=== PATIENT | female | born 1960 | race Caucasian/White ===

== ENCOUNTER 2021-08-15 17:28 | Emergency (ER) | payer OTHER ==
[~2021-08-15] VITALS: Ht 154.9 cm; Wt 59.0 kg
[~2021-08-15 17:28] MED LIST: AMLO10 PO; ASPI81CH PO; ATOR80 PO; B-12500 MC2 PO; BUSP10 PO; CARV6.25 PO; CEPH500 PO; CLON.5 PO; DERMACINRX FOL1 EAC2 PO; HYDCHL25 PO; HYDR100 PO; Isosorbide Mono30 MG PO; KLOR-CON 1010 ME6 PO; LISI20 PO; MELA3 PO; METF500C PO; OLAN5 PO; PARO20 PO; POTA10T PO; TRAM50 PO
[2021-08-15 18:26] LABS: Source, Urine Straight Cath
[2021-08-15 18:31] LABS: Appearance, Urine Clear (Clear); Bilirubin, Urine Neg (Neg); Blood, Urine Neg (Neg); Color, Urine Yellow (P-Yellow); Glucose Qualitative, Urine Neg (Neg); Ketones, Urine Neg (Neg); Leukocyte Esterase, Urine Neg (Neg); Nitrite, Urine Neg (Neg); Protein, Urine Neg (Neg); Specific Gravity, Urine 1.015 (1.003-1.022); Urobilinogen, Urine NORM (Normal)
== END 2021-08-15 20:41 | disposition home or self-care (01) ==
LOC: ER 17:28
PROVIDERS: Emergency Medicine
DX: R41.82 Altered mental status, unspecified (principal); Z79.899 Other long term (current) drug therapy; Z79.891 Long term (current) use of opiate analgesic; Z79.82 Long term (current) use of aspirin; Z79.84 Long term (current) use of oral hypoglycemic drugs
CPT/HCPCS: 51701; 81003; 99284

== ENCOUNTER 2021-09-20 18:58 | Emergency (ER) | payer OTHER ==
[~2021-09-20] VITALS: Ht 154.9 cm; Wt 56.7 kg
[~2021-09-20 18:58] MED LIST changes: +ACET325 PO; +ALPR.25 PO; +BISA10S PR; +NEURONTIN300 MG PO; +VITAMIN D5000 UNIT PO
[2021-09-20 19:30] LABS: BASOPHILS ABSOLUTE AUTO 0.09 K/mm3 (0.00-0.23); BASOPHILS PERCENT AUTO 1 % (0-2); EOSINOPHILS ABSOLUTE AUTO 0.25 K/mm3 (0.00-0.68); EOSINOPHILS PERCENT AUTO 3 % (0-6); Hematocrit 34.9 % (33.0-51.0); Hemoglobin 11.1 g/dL (11.5-16.0); IMMATURE GRAN ABSOLUTE AUTO 0.03 K/mm3 (0.00-0.10); IMMATURE GRAN PERCENT AUTO 0 % (0-1); LYMPHOCYTES ABSOLUTE AUTO 3.73 K/mm3 (0.84-5.20); LYMPHOCYTES PERCENT AUTO 38 % (21-46); MONOCYTES ABSOLUTE AUTO 0.55 K/mm3 (0.16-1.47); MONOCYTES PERCENT AUTO 6 % (4-13); Mean Corpuscular HGB 30.4 pg (26.0-34.0); Mean Corpuscular HGB Conc 31.8 g/dL (31.5-36.5); Mean Corpuscular Volume 96 fL (80-100); NEUTROPHILS ABSOLUTE AUTO 5.18 K/mm3 (1.96-9.15); NEUTROPHILS PERCENT AUTO 53 % (41-73); Platelet Count 424 K/mm3 (150-400); RDW Coefficient Variation 13.3 % (11.7-14.2); RDW Standard Deviation 47.4 fL (35.1-46.3); Red Blood Cell Count 3.65 M/mm3 (3.80-5.20); White Blood Cell Count 9.83 K/mm3 (4.00-11.30)
[2021-09-20 20:01] LABS: Albumin, Blood 3.5 g/dL (3.4-5.0); Albumin/Globulin Ratio 0.9 (0.8-1.8); Bilirubin, Total 0.3 mg/dL (0.1-1.0); Bun/Creatinine Ratio 19.8 (12.0-20.0); Calcium, Blood 9.1 mg/dL (8.5-10.1); Creatinine, Blood 1.26 mg/dL (0.40-1.00); Potassium, Blood 3.6 mmol/L (3.5-5.5); Total Protein, Blood 7.5 g/dL (6.4-8.2)
[2021-09-20] MEDS ORDERED: CLOP75 PO (22:09)
== END 2021-09-20 23:02 | disposition home or self-care (01) ==
LOC: ER 18:58
PROVIDERS: Emergency Medicine
DX: T18.128A Food in esophagus causing other injury, initial encounter (principal); X58.XXXA Exposure to other specified factors, initial encounter; I65.23 Occlusion and stenosis of bilateral carotid arteries; I10 Essential (primary) hypertension; E78.5 Hyperlipidemia, unspecified; Z79.82 Long term (current) use of aspirin; Z79.899 Other long term (current) drug therapy
CPT/HCPCS: 36415; 70450; 70496; 70498; 71045; 80053; 82947; 84484; 85025; 93005; 93010; A9270; Q9967

== ENCOUNTER 2023-03-09 10:26 | Inpatient (IN) | payer OTHER ==
[~2023-03-09] VITALS: Ht 154.9 cm; Wt 59.4 kg
[~2023-03-09 10:26] MED LIST changes: +CLOP75 PO; -HYDR100 PO; +HYDRA50 PO
[2023-03-09 10:47] LABS: BASOPHILS ABSOLUTE AUTO 0.03 K/mm3 (0.00-0.23); BASOPHILS PERCENT AUTO 0 % (0-2); EOSINOPHILS ABSOLUTE AUTO 0.08 K/mm3 (0.00-0.68); EOSINOPHILS PERCENT AUTO 1 % (0-6); Hematocrit 36.6 % (33.0-51.0); Hemoglobin 11.7 g/dL (11.5-16.0); IMMATURE GRAN ABSOLUTE AUTO 0.04 K/mm3 (0.00-0.10); IMMATURE GRAN PERCENT AUTO 0 % (0-1); LYMPHOCYTES ABSOLUTE AUTO 2.53 K/mm3 (0.84-5.20); LYMPHOCYTES PERCENT AUTO 27 % (21-46); MONOCYTES ABSOLUTE AUTO 0.86 K/mm3 (0.16-1.47); MONOCYTES PERCENT AUTO 9 % (4-13); Mean Corpuscular HGB 30.2 pg (26.0-34.0); Mean Corpuscular Volume 94 fL (80-100); NEUTROPHILS ABSOLUTE AUTO 5.73 K/mm3 (1.96-9.15); NEUTROPHILS PERCENT AUTO 62 % (41-73); Platelet Count 289 K/mm3 (150-400); RDW Standard Deviation 48.8 fL (35.1-46.3); Red Blood Cell Count 3.88 M/mm3 (3.80-5.20); White Blood Cell Count 9.27 K/mm3 (4.00-11.30)
[2023-03-09 10:59] LABS: Base Excess Venous -3.5 mmol/L; Bicarbonate Venous 22.1 mmol/L (24.0-30.0); PCO2 Venous 31.9 mmHg (38-42); pH Blood Venous 7.42 (7.34-7.37)
[2023-03-09 11:01] LABS: International Normalized Ratio 0.99; Prothrombin Time Results 10.4 Sec (9.7-11.5)
[2023-03-09 11:18] LABS: Bilirubin, Urine Neg (Neg); Blood, Urine 4+ (Neg); Glucose Qualitative, Urine Neg (Neg); Ketones, Urine Neg (Neg); Leukocyte Esterase, Urine 3+ (Neg); Nitrite, Urine Neg (Neg); Protein, Urine 2+ (Neg); Source, Urine Straight Cath; Specific Gravity, Urine 1.015 (1.003-1.022); Urobilinogen, Urine NORM (Normal)
[2023-03-09 11:26] LABS: Alanine Aminotransfer (ALT/SGP 20 U/L (12-78); Albumin, Blood 3.4 g/dL (3.4-5.0); Albumin/Globulin Ratio 0.8 (0.8-1.8); Alk Phos 82 U/L (50-136); Anion Gap 7 mmol/L (6-16); Aspartate Aminotrans (AST/SGOT 21 U/L (12-37); Bilirubin, Total 0.5 mg/dL (0.1-1.0); Blood Urea Nitrogen 59 mg/dL (8-24); Bun/Creatinine Ratio 22.6 (12.0-20.0); CO2, Blood 25 mmol/L (21-32); Chloride, Blood 121 mmol/L (98-108); Creatinine, Blood 2.61 mg/dL (0.40-1.00); Ethanol (Alcohol), Blood, Med <3 mg/dL; Globulin, Blood 4.1 g/dL (2.2-4.0); Glomerular Filtration Rate 20 (60-); Glucose, Blood 179 mg/dL (70-99); Potassium, Blood 3.6 mmol/L (3.5-5.5); Sodium, Blood 153 mmol/L (136-145); Total Protein, Blood 7.5 g/dL (6.4-8.2)
[2023-03-09 11:29] LABS: U Amphetamine Screen Not Detected; U Barbituate Screen Not Detected; U Benzodiazapine Screen Not Detected; U Buprenorphine Screen Not Detected; U Cannabinoids Screen Not Detected; U Cocaine Screen Not Detected; U Methadone Screen Not Detected; U Methamphetamine Screen Not Detected; U Opiates Screen Not Detected; U Oxycodone Screen Not Detected; U Phencyclidine Screen Not Detected; U Propoxyphene Screen Not Detected
[2023-03-09 11:31] LABS: Appearance, Urine Hazy (Clear); Color, Urine Yellow (P-Yellow)
[2023-03-09 11:33] LABS: Bacteria Few /hpf; Red Blood Cells, Urine 25-50 /hpf (0-2); Squamous Epithelial Cells Not Seen /hpf (Few); White Blood Cells, Urine 25-50 /hpf (0-5)
[2023-03-09 11:56] LABS: Influenza A, PCR NEGATIVE (NEGATIVE); Influenza B, PCR NEGATIVE (NEGATIVE); Resp Syncytial Virus, PCR NEGATIVE (NEGATIVE)
[2023-03-09 12:00] LABS: SARS-Cov-2 (COVID-19) PCR, MMC POSITIVE (NEGATIVE)
[2023-03-09 13:49] VITALS: BP 115/54
[2023-03-09 14:50] VITALS: BP 110/50
[2023-03-09 15:51] VITALS: BP 133/66
--- NOTE | 2023-03-09 19:22 | NUR ---
SHIFT SUMMARY RN TO RN PHONE REPORT AT 1330 FROM ARASH HUSSEIN IN ER. PATIENT ARRIVED ON UNIT AT 1345. PATIENT DENIES ANY SYMPTOMS AT THIS TIME BUT IS ONLY ABLE TO STATE NAME AND DATE OF . SPEECH SLOW AND DIFFICULT TO UNDERSTAND AT TIMES. PATIENT NOT A RELIABLE HISTORIAN. CALL PLACED TO RASHARD AT [facility]. PATIENT BLADDER SCANNED AT 1645 WITH 465 IN BLADDER. STERILE STRAIGHT CATH PERFROMED AT 1801 AND 725 ML OUT OF YELLOW CLOUDY URINE. PATIENT TOLERATED WELL DESPITE CONTRACTURES. SHE DENIES ANY PAIN WITH PASSIVE RANGE OF MOTION. PATIENT ABLE TO OPEN AND CLOSE HANDS BILAT UPON REQUEST. BED IN LOW POSITION. CALL LIGHT IN REACH. BED ALARM ON. HOURLY ROUNDING PERFORMED DURING SHIFT.
[2023-03-09 20:05] LABS: Bun/Creatinine Ratio 26.9 (12.0-20.0); Calcium, Blood 8.8 mg/dL (8.5-10.1); Creatinine, Blood 1.93 mg/dL (0.40-1.00); Potassium, Blood 3.5 mmol/L (3.5-5.5)
[2023-03-09] MEDS ORDERED: MIRALAX11910 PO (20:28)
[2023-03-09 20:42] VITALS: BP 138/61
[2023-03-10 03:15] VITALS: BP 142/59
[2023-03-10 05:13] LABS: BASOPHILS ABSOLUTE AUTO 0.03 K/mm3 (0.00-0.23); BASOPHILS PERCENT AUTO 0 % (0-2); EOSINOPHILS PERCENT AUTO 1 % (0-6); Hematocrit 33.5 % (33.0-51.0); Hemoglobin 10.9 g/dL (11.5-16.0); IMMATURE GRAN ABSOLUTE AUTO 0.03 K/mm3 (0.00-0.10); IMMATURE GRAN PERCENT AUTO 0 % (0-1); LYMPHOCYTES ABSOLUTE AUTO 2.76 K/mm3 (0.84-5.20); LYMPHOCYTES PERCENT AUTO 34 % (21-46); MONOCYTES ABSOLUTE AUTO 0.72 K/mm3 (0.16-1.47); MONOCYTES PERCENT AUTO 9 % (4-13); Mean Corpuscular HGB 30.1 pg (26.0-34.0); Mean Corpuscular HGB Conc 32.5 g/dL (31.5-36.5); Mean Corpuscular Volume 93 fL (80-100); Mean Platelet Volume 10.6 fL (9.1-12.4); NEUTROPHILS ABSOLUTE AUTO 4.46 K/mm3 (1.96-9.15); NEUTROPHILS PERCENT AUTO 55 % (41-73); Platelet Count 296 K/mm3 (150-400); RDW Coefficient Variation 13.6 % (11.7-14.2); RDW Standard Deviation 46.7 fL (35.1-46.3); Red Blood Cell Count 3.62 M/mm3 (3.80-5.20)
[2023-03-10 05:35] LABS: Magnesium, Blood 1.8 mg/dL (1.6-2.4)
[2023-03-10 05:36] LABS: Albumin, Blood 3.2 g/dL (3.4-5.0); Anion Gap 6 mmol/L (6-16); Blood Urea Nitrogen 38 mg/dL (8-24); Bun/Creatinine Ratio 23.8 (12.0-20.0); CO2, Blood 25 mmol/L (21-32); Calcium, Blood 8.9 mg/dL (8.5-10.1); Chloride, Blood 123 mmol/L (98-108); Glomerular Filtration Rate 36 (60-); Glucose, Blood 115 mg/dL (70-99); Phosphorus, Blood 2.8 mg/dL (2.5-4.9); Potassium, Blood 3.2 mmol/L (3.5-5.5); Sodium, Blood 154 mmol/L (136-145)
--- NOTE | 2023-03-10 06:00 | NUR ---
PT A&O x1, VSS, AFEBRILE. PT PULLED IV OUT, NEW IV PLACED TO L HAND, RUNNING LR AT 50mL/HR. PT DENIED PAIN/DISCOMFORT DURING NURSING ASSESSMENT. PT'S SPEECH DIFFICULT TO UNDERSTAND AT TIMES. PT ON TELEMETRY SINUS J CARLOS 71. PT DENIED CHEST PAIN, NO SOB, NO SORE THROAT, NO COUGH PRESENT. L SIDE FACIAL DROOP NOTED. BILATERAL HAND CONTRACTURES, CENTERLESS GRINDER PRESENT TO PT'S L HAND. PUREWICK IN PLACE, OUTPUT RECORDED. FREQUENT SAFETY CHECKS COMPLETED THROUGHOUT THE SHIFT. CALL LIGHT WITHIN REACH, WCTM.
[2023-03-10 07:34] VITALS: BP 95/54
--- NOTE | 2023-03-10 14:38 | NUR ---
Pt found to have pulled IV tubing from IV lock. Pt with blood on sheets. IV taken out. Complete hygiene care provided with MULESER
[2023-03-10 14:55] VITALS: BP 133/57
--- NOTE | 2023-03-10 15:26 | NUR ---
Upon receiving a referral for spiritual care, I visited the patient. She tells me that she is not feeling well and is lonely as we are talking I notice a large amount of blood and ask for assistance. Her RN and CONTRACTS ANALYST respond immediately and address pulled IV lines. I will attempt another visit.
--- NOTE | 2023-03-10 17:45 | NUR ---
SHIFT SUMMARY: Pt remains awake and alert to self this shift. Denies pain. VSS. Resp even nonlabored. Nonproductive occasionally. Tolerating soft ground diet. 1:1 feed with dysphagia precautions. Thin liq with straw. Tongue with white coating. Oral care provided along with Nystatin. Repostioned Q2 hours. Fall prec in place. Will continue to monitor.
[2023-03-10 20:10] VITALS: BP 127/63
[2023-03-11 02:36] VITALS: BP 101/49
--- NOTE | 2023-03-11 04:45 | NUR ---
END OF SHIFT SUMMARY PT A&O x1, VSS, AFEBRILE. PT SLEPT ON AND OFF THROUGHOUT THE SHIFT. PT ON TELEMETRY WITH A RATE AND RHYTHM OF SINUS J CARLOS AT 55BPM WITH A FIRST DEGREE BLOCK. PT DENIED ANY PAIN/DISCOMFORT. PT REORIENTED TO THE CURRENT SITUATION, TIME/DATE, AND LOCATION. PT DIFFICULT TO COMPREHEND AT TIMES, PT ENCOURAGED TO SLOW DOWN WHILE TALKING. IV STILL PLACED TO L HAND RUNNING D5 AT 75. CALL LIGHT WITHIN REACH, FREQUENT SAFETY CHECKS COMPLETED DURING Q2 TURNS/REPOSITIONING. WCTM.
[2023-03-11 06:04] LABS: BASOPHILS ABSOLUTE AUTO 0.03 K/mm3 (0.00-0.23); BASOPHILS PERCENT AUTO 0 % (0-2); EOSINOPHILS ABSOLUTE AUTO 0.12 K/mm3 (0.00-0.68); EOSINOPHILS PERCENT AUTO 1 % (0-6); Hemoglobin 10.3 g/dL (11.5-16.0); IMMATURE GRAN ABSOLUTE AUTO 0.06 K/mm3 (0.00-0.10); IMMATURE GRAN PERCENT AUTO 1 % (0-1); LYMPHOCYTES ABSOLUTE AUTO 3.56 K/mm3 (0.84-5.20); LYMPHOCYTES PERCENT AUTO 40 % (21-46); MONOCYTES ABSOLUTE AUTO 0.77 K/mm3 (0.16-1.47); MONOCYTES PERCENT AUTO 9 % (4-13); Mean Corpuscular HGB 30.3 pg (26.0-34.0); Mean Corpuscular HGB Conc 32.2 g/dL (31.5-36.5); Mean Corpuscular Volume 94 fL (80-100); Mean Platelet Volume 10.6 fL (9.1-12.4); NEUTROPHILS ABSOLUTE AUTO 4.35 K/mm3 (1.96-9.15); NEUTROPHILS PERCENT AUTO 49 % (41-73); Platelet Count 302 K/mm3 (150-400); RDW Coefficient Variation 13.6 % (11.7-14.2); RDW Standard Deviation 46.7 fL (35.1-46.3); White Blood Cell Count 8.89 K/mm3 (4.00-11.30)
[2023-03-11 06:41] LABS: Anion Gap 6 mmol/L (6-16); Blood Urea Nitrogen 32 mg/dL (8-24); Bun/Creatinine Ratio 19.2 (12.0-20.0); CO2, Blood 26 mmol/L (21-32); Calcium, Blood 8.6 mg/dL (8.5-10.1); Chloride, Blood 114 mmol/L (98-108); Creatinine, Blood 1.67 mg/dL (0.40-1.00); Glomerular Filtration Rate 34 (60-); Glucose, Blood 125 mg/dL (70-99); Phosphorus, Blood 3.4 mg/dL (2.5-4.9); Potassium, Blood 3.5 mmol/L (3.5-5.5); Sodium, Blood 146 mmol/L (136-145)
[2023-03-11 07:47] VITALS: BP 105/58
[2023-03-11 15:21] VITALS: BP 119/61
--- NOTE | 2023-03-11 17:23 | NUR ---
SHIFT SUMMARY: Pt more awake and alert today. Speech remains garbled, but easier to understand. VSS, denies pain. Repositioned frequently for comfort and skin integrity. 1:1 feed, pills crushed without difficulty swallowing. Fall precautions in place.
[2023-03-11 19:32] VITALS: BP 111/54
[2023-03-12 05:04] VITALS: BP 134/53
[2023-03-12 06:04] LABS: Bun/Creatinine Ratio 18.4 (12.0-20.0); Calcium, Blood 8.7 mg/dL (8.5-10.1); Creatinine, Blood 1.25 mg/dL (0.40-1.00); Potassium, Blood 3.3 mmol/L (3.5-5.5)
--- NOTE | 2023-03-12 06:47 | NUR ---
SHIFT SUMMARY NO EVENTS OVERNIGHT.
[2023-03-12 08:35] VITALS: BP 145/59
--- NOTE | 2023-03-12 09:11 | NUR ---
morning medications gave pills whole with apple sauce. broke up large ones when able. Pt swollowed easily without difficulty. continue poc.
--- NOTE | 2023-03-12 10:16 | NUR ---
ASSISTED CALLED KAYLIN VINCENT. HE IS HAVING A CAREGIVER COME UP AND ASSESS PT FOR BASELINE. HE STATED THAT THEY ARE GOOD WITH TAKING HER BACK WITH COVID. SHE HAS A PRIVATE ROOM AND WILL ISOLATE IN THERE. CONTINUE POC.
--- NOTE | 2023-03-12 11:33 | NUR ---
DEANNE SEGURA NOTICED A NOTATION ON THE REMOTE MONITOR FOR TELEMETRY THAT IT SAID "FAKE VT". CALLED B[employer]IV[employer] WARP KNITTER HELPER., TO ENQUIRE. SHE RELATED THAT IT WAS A NOTATION THAT, DUE TO PT RIGHT UE TREMOR, IF THE PACK IS TOUCHED BY HER ARM IT LOOKS LIKE VT. PT IS NOT HAVING RUNS OF VT SINCE 03/10/2023. CONTINUE POC.
--- NOTE | 2023-03-12 16:57 | NUR ---
NOTE PT ALERT. RESTING QUIETLY. SHE LIKES TO SING BUT WITH HER APHAGIA IT SOUNDS LIKE CRYING. VSS. TALKED WITH PT [facility]AREHOME PER DR SRIVASTAVA REQUEST. THE [facility] HAS COVID INCLUDING THE STAFF. NUMBERER AND WIRER ASKED IF WE COULD DELAY HER RETURN UNTIL TUESDAY. REFERED TO DR SRIVASTAVA. H/L. RA. DENIED DISCOMFORT. TELEMETRY INTACT-SINUS RHYTHM NO PVC NOTED. INCONTINENT OF BLADDER. CONTINUE POC.
[2023-03-12 19:13] VITALS: BP 110/55
--- NOTE | 2023-03-13 04:09 | NUR ---
SHIFT SUMMARY A/OX2. ROOM AIR. NO COUGH, DENIES SOB. COVID POSITIVE. SPEECH MUMBLED AND WORD SALAD AT TIMES. TONGUE PROTRUDES. ASPIRATION PRECAUTIONS IN PLACE. PATIENT IS INCONTINENT, 1 PERSON TO CHANGE BRIEF. PT CAN HELP ROLL IN BED. PT HAS RIGHT SIDED DEFICITS FROM STROKE HISTORY. PATIENT HAS TREMORS/SPASTIC TO RIGHT UPPER EXTREMITY. TELE IN PLACE WTIH NOTED FAKE VTACH DUE TO TREMORS. LEFT LEG IS CONTRACTED, PT UNABLE TO MOVE EITHER LEGS INDEPENDENTLY. BED BOUND WITH BED ALARM ON.
[2023-03-13 06:20] LABS: Bun/Creatinine Ratio 15.7 (12.0-20.0); Calcium, Blood 8.9 mg/dL (8.5-10.1); Creatinine, Blood 1.21 mg/dL (0.40-1.00); Potassium, Blood 3.5 mmol/L (3.5-5.5)
[2023-03-13 07:57] VITALS: BP 141/65
[2023-03-13] MEDS ORDERED: CEPH500 PO (10:57)
[2023-03-13] MEDS ORDERED: LACT PO (10:57)
[2023-03-13] MEDS ORDERED: AZIT250 PO (10:57)
[2023-03-13 15:55] VITALS: BP 107/45
--- NOTE | 2023-03-13 17:09 | NUR ---
SHIFT SUMMARY PT AxOx2 WITH DIFFICULTY COMMUNICATING R/T APHASIA D/T HX OF STROKE. PT LIVES IN [facility] AND IS BED/WC BOUND AT BASELINE. PT DENIES PAIN THIS SHIFT. SHE WAS TURNED/REPOSITIONED Q2. PT DENIES RESP SYMPTOMS THIS SHIFT WITH CLEAR LS T/O. PT REFUSED NYSTATIN RX, AGREEING WHEN ASKED THAT IT WAS DUE TO IT TASTING BAD. PT TOOK OTHER MEDS CRUSHED IN APPLESAUCE WITHOUT DIFFICULTY. PT RECEIVED IV ABX THIS AM. TELE REPORTED HER HR AT SINUS RHYTHM @68. PT IS EXPECTED TO DC BACK TO HER [facility] TOMORROW. SHE IS CURRENTLY RESTING IN HER BED WITH CALL LIGHT IN REACH.
[2023-03-13 19:33] VITALS: BP 123/53
--- NOTE | 2023-03-14 04:44 | NUR ---
SHIFT SUMMARY A/OX1-2,ROOM AIR UNABLE TO FULLY ASSESS ORIENTATION DUE TO GARBLED SPEECH AND UNALBE TO FORMULATE THE WORDS. UNREMARKABLE SHIFT. DENIES PAIN. COVID POSITIVE BUT ASYMPTOMATIC. INCONTINENT, BRIEF ON. D/C ORDERS ARE IN, JUST NEED TO BE PRINTED THIS AM, SHE IS GOING BACK TO HER CARE FACILITY. NO PRN'S GIVEN. MEDS GIVEN WHOLE IN APPLESUACE. UNABLEL TO MAKE NEEDS KNOWN. CALL LIGHT IN REACH, BED LOCKED IN LOW POSITION.
[2023-03-14 05:37] VITALS: BP 129/57
[2023-03-14 08:52] VITALS: BP 148/58
--- NOTE | 2023-03-14 15:41 | NUR ---
DISCHARGE NOTE PT DISCHARGED BACK TO HER HOME, PICKED UP BY [facility]. IV REMOVED. TELE REMOVED AND RETURNED. DISCHARGE PACKET PROVIDED TO THE WELDING MACHINE OPERATOR [employer] ALONG WITH A FACE SHEET. PERSONAL BELONGINGS RETURNED.
== END 2023-03-14 15:40 | DRG 177 ==
LOC: ER 10:26 → MEDS 12:32 → ENPENDDIS 03-14 11:45 → MEDS 03-14 15:40
PROVIDERS: Family Medicine; Student in an Organized Health Care Education/Training Program; ADMIT Internal Medicine
PROC: 8E0ZXY6 Isolation (ICD-10-PCS; principal; 2023-03-09)
DX: U07.1 COVID-19 (principal); G92.8 Other toxic encephalopathy; J18.9 Pneumonia, unspecified organism; E87.0 Hyperosmolality and hypernatremia; I69.351 Hemiplegia and hemiparesis following cerebral infarction affecting right dominant side; N17.9 Acute kidney failure, unspecified; N39.0 Urinary tract infection, site not specified; I47.20 Ventricular tachycardia, unspecified; E86.0 Dehydration; N18.30 Chronic kidney disease, stage 3 unspecified; R13.10 Dysphagia, unspecified; I12.9 Hypertensive chronic kidney disease with stage 1 through stage 4 chronic kidney disease, or unspecified chronic kidney disease; E78.5 Hyperlipidemia, unspecified; D63.1 Anemia in chronic kidney disease; E87.6 Hypokalemia; Z79.899 Other long term (current) drug therapy; Z79.82 Long term (current) use of aspirin; Z79.84 Long term (current) use of oral hypoglycemic drugs; Z87.891 Personal history of nicotine dependence
CPT/HCPCS: 0241U; 36415; 70450; 71045; 80048; 80053; 80069; 81001; 82140; 82803; 82947; 83605; 83735; 84145; 85025; 85379; 85610; 85730; 87040; 87086; 92526; 92610; 93005; 93010; 96361; 96365; 99285-25; A9270; J0696; J1644; J3480; J7030; J7070; J7120; P9612

== ENCOUNTER → 2023-11-03 | Outpatient (CLI) | payer OTHER ==
[~2023-11-03] MED LIST changes: +AZIT250 PO; +GABA100 PO; +LACT PO; +MIRALAX11910 PO
== END ==
LOC: LAB SHORT 11:50 → LAB 11:50
DX: N30.01 Acute cystitis with hematuria (principal)
CPT/HCPCS: 87077; 87086; 87186

== ENCOUNTER → 2023-12-09 | Outpatient (CLI) | payer OTHER ==
[2023-12-09 17:01] LABS: Source, Urine Clean Catch
[2023-12-09 17:17] LABS: BASOPHILS ABSOLUTE AUTO 0.06 K/mm3 (0.00-0.23); BASOPHILS PERCENT AUTO 1 % (0-2); EOSINOPHILS ABSOLUTE AUTO 0.34 K/mm3 (0.00-0.68); EOSINOPHILS PERCENT AUTO 3 % (0-6); Hematocrit 39.7 % (33.0-51.0); Hemoglobin 13.1 g/dL (11.5-16.0); IMMATURE GRAN ABSOLUTE AUTO 0.02 K/mm3 (0.00-0.10); IMMATURE GRAN PERCENT AUTO 0 % (0-1); LYMPHOCYTES ABSOLUTE AUTO 4.07 K/mm3 (0.84-5.20); LYMPHOCYTES PERCENT AUTO 33 % (21-46); MONOCYTES ABSOLUTE AUTO 0.78 K/mm3 (0.16-1.47); MONOCYTES PERCENT AUTO 6 % (4-13); Mean Corpuscular HGB 30.5 pg (26.0-34.0); Mean Corpuscular Volume 92 fL (80-100); Mean Platelet Volume 10.3 fL (9.1-12.4); NEUTROPHILS ABSOLUTE AUTO 7.03 K/mm3 (1.96-9.15); NEUTROPHILS PERCENT AUTO 57 % (41-73); Platelet Count 278 K/mm3 (150-400); RDW Coefficient Variation 12.7 % (11.7-14.2); RDW Standard Deviation 42.7 fL (35.1-46.3)
[2023-12-09 17:21] LABS: Bacteria Many /hpf; Squamous Epithelial Cells Many /hpf (Few); White Blood Cells, Urine TNTC /hpf (0-5)
[2023-12-09 17:27] LABS: Albumin, Blood 3.5 g/dL (3.4-5.0); Albumin/Globulin Ratio 0.9 (0.8-1.8); Bilirubin, Total 0.3 mg/dL (0.1-1.0); Bun/Creatinine Ratio 19.2 (12.0-20.0); Calcium, Blood 9.1 mg/dL (8.5-10.1); Creatinine, Blood 1.46 mg/dL (0.40-1.00); Globulin, Blood 4.1 g/dL (2.2-4.0); Potassium, Blood 3.7 mmol/L (3.5-5.5); Total Protein, Blood 7.6 g/dL (6.4-8.2)
== END | disposition home or self-care (01) ==
LOC: LAB 16:59 → LAB SHORT 16:59
PROVIDERS: Internal Medicine
DX: N39.0 Urinary tract infection, site not specified (principal); R11.2 Nausea with vomiting, unspecified
CPT/HCPCS: 80053; 81015; 83690; 85025; 87077; 87086; 87186